=== PATIENT | male | born 1990 | race Caucasian/White ===

== ENCOUNTER → 2017-05-30 | Outpatient (CLI) | payer BC ==
[2017-05-30 11:32] LABS: FREE T4 (FREE THYROXINE) 0.82 ng/dL (0.93-1.71)
== END ==
LOC: MOB LAB 09:26
PROVIDERS: ATTEND Nurse Practitioner Family
DX: F41.9 Anxiety disorder, unspecified (principal); F32.9 Major depressive disorder, single episode, unspecified
CPT/HCPCS: 36415; 84439; 84443